=== PATIENT | female | born 1955 | race Caucasian/White ===

== ENCOUNTER 2022-07-16 12:56 | Emergency (ER) | payer MEDICARE, BC ==
[~2022-07-16] VITALS: Ht 167.6 cm; Wt 79.4 kg
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
--- NOTE | 2022-07-16 13:30 | NUR ---
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
[2022-07-16] MEDS ORDERED: CYCLOBENZAPRINE 10 MG TABLET PO ONE (14:30)
[2022-07-16] MEDS ORDERED: HYDROCODONE/APAP 5/325MG TABLET PO ONE (14:30)
[2022-07-16] MEDS ORDERED: CYCLOBENZAPRINE 10 MG TABLET ONE (14:33)
[2022-07-16] MEDS ORDERED: HYDROCODONE/APAP 5/325MG TABLET ONE (14:33)
[2022-07-16] MEDS ORDERED: IBUPROFEN 600 MG TABLET PO ONE (15:00)
[2022-07-16] MEDS ORDERED: CYCL5TAB PO (15:03)
[2022-07-16] MEDS ORDERED: IBUP-1955 PO (15:03)
[2022-07-16] MEDS ORDERED: HYDR-4209 PO (15:03)
[2022-07-16] MEDS ORDERED: IBUPROFEN 600 MG TABLET ONE (15:03)
[2022-07-16 17:03] VITALS: BP 123/85
== END 2022-07-16 17:03 | disposition home or self-care (01) ==
LOC: ER 12:58
DX: S32.040A Wedge compression fracture of fourth lumbar vertebra, initial encounter for closed fracture (principal); I10 Essential (primary) hypertension; E03.9 Hypothyroidism, unspecified; Z88.0 Allergy status to penicillin; Z88.2 Allergy status to sulfonamides; V03.90XA Pedestrian on foot injured in collision with car, pick-up truck or van, unspecified whether traffic or nontraffic accident, initial encounter; Y93.89 Activity, other specified; Y92.89 Other specified places as the place of occurrence of the external cause; Y99.8 Other external cause status
CPT/HCPCS: 72110-TC; 72170-TC